=== PATIENT | male | born 1995 | race Caucasian/White ===

== ENCOUNTER 2022-08-25 06:59 | Emergency (ER) | payer BC, OTHER ==
[2022-08-25 07:07] VITALS: BP 141/102; PULSE 86; RESP 18; TEMP 98.2; BMI 22.0
== END 2022-08-25 07:54 | disposition home or self-care (01) ==
LOC: FER 06:59
DX: M79.641 Pain in right hand (principal); S39.012A Strain of muscle, fascia and tendon of lower back, initial encounter
CPT/HCPCS: 73130-TC-RT-FY; 99283-25

== ENCOUNTER 2022-12-22 05:04 | Emergency (ER) | payer OTHER ==
[2022-12-22 05:17] VITALS: BP 158/108; PULSE 94; RESP 16; TEMP 98.3; BMI 22.6
== END 2022-12-22 07:47 | disposition home or self-care (01) ==
LOC: FER 05:04
DX: S16.1XXA Strain of muscle, fascia and tendon at neck level, initial encounter (principal); R51.9 Headache, unspecified; V49.50XA Passenger injured in collision with unspecified motor vehicles in traffic accident, initial encounter
CPT/HCPCS: 72040-TC; 99283-25

== ENCOUNTER 2023-10-14 00:25 | Emergency (ER) | payer OTHER ==
[2023-10-14 00:32] VITALS: BP 153/102; PULSE 96; RESP 16; TEMP 98; BMI 20.9
== END 2023-10-14 02:05 | disposition home or self-care (01) ==
LOC: FER 00:25
DX: S63.501A Unspecified sprain of right wrist, initial encounter (principal); S60.416A Abrasion of right little finger, initial encounter; M25.531 Pain in right wrist; M79.641 Pain in right hand; X58.XXXA Exposure to other specified factors, initial encounter; Y99.0 Civilian activity done for income or pay
CPT/HCPCS: 99282-25

== ENCOUNTER 2024-02-18 23:48 | Emergency (ER) | payer OTHER ==
[2024-02-19 00:01] VITALS: BP 152/97; PULSE 76; RESP 17; TEMP 97.7; BMI 22.4
== END 2024-02-19 01:11 | disposition home or self-care (01) ==
LOC: FER 23:48
DX: S43.402A Unspecified sprain of left shoulder joint, initial encounter (principal); M25.521 Pain in right elbow; M25.561 Pain in right knee; W19.XXXA Unspecified fall, initial encounter
CPT/HCPCS: 73030-TC-LT-FY; 99283-25

== ENCOUNTER 2024-10-08 11:49 | Emergency (ER) | payer OTHER, BC ==
[2024-10-08 12:14] VITALS: BP 140/98; PULSE 89; RESP 18; TEMP 98.6; BMI 23.0
== END 2024-10-08 12:42 | disposition home or self-care (01) ==
LOC: FER 11:49
DX: S60.511A Abrasion of right hand, initial encounter (principal); M54.2 Cervicalgia; Y04.8XXA Assault by other bodily force, initial encounter
CPT/HCPCS: 99283-25